=== PATIENT | male | born 1995 | race Caucasian/White ===

== ENCOUNTER 2024-08-10 11:20 | Emergency (ER) | payer SELFPAY ==
[~2024-08-10] VITALS: Ht 177.8 cm; Wt 85.0 kg
[2024-08-10 11:34] VITALS: O2SAT 99
[2024-08-10 12:38] VITALS: BP 112/81; PULSE 60; RESP 18; TEMP 36.89184; O2SAT 99
== END 2024-08-10 12:39 | disposition home or self-care (01) ==
LOC: ER 11:20
DX: K64.4 Residual hemorrhoidal skin tags (principal); Z88.0 Allergy status to penicillin
CPT/HCPCS: 99281

== ENCOUNTER 2025-07-13 19:06 | Emergency (ER) | payer MEDICAID ==
[~2025-07-13] VITALS: Ht 180.3 cm; Wt 82.0 kg
[2025-07-13 19:10] VITALS: O2SAT 100
[2025-07-13 20:21] LABS: BASOPHILS % 0.7 % (0.0-2.0); EOSINOPHILS % 1.5 % (0.0-5.0); HEMATOCRIT. 44.7 % (42.0-52.0); HEMOGLOBIN. 15.0 g/dL (14.0-18.0); LYMPHOCYTES % 38.6 % (20.0-50.0); MEAN PLATELET VOLUME 7.3 fl (7.4-10.4); MONOCYTES % 7.3 % (2.0-8.0); NEUTROPHILS % 51.9 % (40.0-76.0); PLATELET 252 x1000/uL (130-400); RED BLOOD CELL COUNT 5.38 mill/uL (4.7-6.1); RED CELL DISTRIBUTION WIDTH 13.3 % (11.6-14.6)
[2025-07-13 20:33] LABS: CREATININE 0.9 mg/dL (0.6-1.3); UREA NITROGEN BLOOD 7 mg/dL (9-23)
[2025-07-13] MEDS: METHYLPREDNISOLONE SOD SUCC 125MG/2ML (ACT-O-VIAL) IV ONE (20:48)
[2025-07-13] MEDS: DIPHENHYDRAMINE 50MG/ML VIAL IV ONE (20:49)
[2025-07-13] MEDS ORDERED: DIPH25CA83 MT (22:36)
[2025-07-13] MEDS: IOHEXOL-300 100 ML BOTTLE ONE (23:10)
[2025-07-13 23:22] VITALS: BP 135/76; PULSE 92; RESP 17; TEMP 36.9; O2SAT 100
== END 2025-07-13 23:22 | disposition home or self-care (01) ==
LOC: ER 19:06
DX: G24.8 Other dystonia (principal); J39.2 Other diseases of pharynx; Z88.0 Allergy status to penicillin
CPT/HCPCS: 80048; 85025; 36415; 70360; 70491; 96374; 96375; 99285; Q9967; J1200; J2919; Z7610 ×3; A4606

== ENCOUNTER 2025-07-19 20:57 | Emergency (ER) | payer MEDICAID ==
[~2025-07-19] VITALS: Ht 215.9 cm; Wt 87.0 kg
[~2025-07-19 20:57] MED LIST: DIPH25CA83 MT
[2025-07-19 21:17] VITALS: O2SAT 100
[2025-07-19 23:41] LABS: CLARITY URINE CLEAR (CLEAR); COLOR URINE DARK YELLOW (YELLOW); GLUCOSE URINE NEGATIVE (NEGATIVE); KETONES URINE TRACE (NEGATIVE); LEUKOCYTE ESTERASE URINE NEGATIVE (NEGATIVE); NITRITE URINE NEGATIVE (NEGATIVE); OCCULT BLOOD URINE NEGATIVE (NEGATIVE); PH URINE 6.0 (4.5-8.0); PROTEIN URINE NEGATIVE (NEGATIVE); SPECIFIC GRAVITY URINE 1.028 (1.005-1.030); UROBILINOGEN URINE 1.0 E.U./dL (0.2-1.0)
[2025-07-19 23:55] LABS: *AMPHETAMINES SCREEN URINE PRESUMPTIVE POSITIVE (NEGATIVE); *BARBITURATES SCREEN URINE NEGATIVE (NEGATIVE); *BENZODIAZEPINES SCREEN URINE NEGATIVE (NEGATIVE); *COCAINE SCREEN URINE NEGATIVE (NEGATIVE); CANNABINOID URINE SCREEN NEGATIVE (NEGATIVE); ECSTASY MDMA SCREEN URINE CONF.TEST INDICATED (NEGATIVE); METHADONE URINE SCREEN NEGATIVE (NEGATIVE); OPIATES URINE SCREEN NEGATIVE (NEGATIVE); PHENCYCLIDINE URINE SCREEN NEGATIVE (NEGATIVE)
[2025-07-20 00:02] LABS: BASOPHILS % 1.0 % (0.0-2.0); EOSINOPHILS % 1.3 % (0.0-5.0); HEMATOCRIT. 39.5 % (42.0-52.0); HEMOGLOBIN. 13.4 g/dL (14.0-18.0); LYMPHOCYTES % 44.9 % (20.0-50.0); MEAN PLATELET VOLUME 7.0 fl (7.4-10.4); MONOCYTES % 9.9 % (2.0-8.0); NEUTROPHILS % 42.9 % (40.0-76.0); PLATELET 236 x1000/uL (130-400); RED BLOOD CELL COUNT 4.77 mill/uL (4.7-6.1); RED CELL DISTRIBUTION WIDTH 14.1 % (11.6-14.6)
[2025-07-20 00:18] LABS: CREATININE 1.0 mg/dL (0.6-1.3)
[2025-07-20 00:19] LABS: UREA NITROGEN BLOOD 12 mg/dL (9-23)
[2025-07-20 00:20] LABS: ASPARTATE AMINOTRANSFERASE 36 IU/L (<34)
[2025-07-20 00:21] LABS: BILIRUBIN DIRECT 0.2 mg/dL (<=3.0); BILIRUBIN TOTAL 0.6 mg/dL (0.1-1.0); PROTEIN TOTAL 6.7 g/dL (6.0-8.3)
[2025-07-20 00:37] LABS: ETHANOL BLOOD < 10 mg/dL (<10)
[2025-07-20 13:05] VITALS: BP 124/84; PULSE 85; RESP 16; TEMP 36.9; O2SAT 100
== END 2025-07-20 13:15 ==
LOC: ER 20:57
DX: R45.851 Suicidal ideations (principal); F15.90 Other stimulant use, unspecified, uncomplicated; F17.200 Nicotine dependence, unspecified, uncomplicated; Z20.822 Contact with and (suspected) exposure to COVID-19; Z79.899 Other long term (current) drug therapy; Z88.0 Allergy status to penicillin
CPT/HCPCS: 36415; 80048; 80076; 80305; 80307; 80320; 80329; 81003; 85025; 87426; 99285; G0480